=== PATIENT | female | born 1985 | race Caucasian/White ===

== ENCOUNTER 2018-04-13 08:31 | Emergency (ER) | payer OTHER ==
[2018-04-13] MEDS: TETRACAINE 0.5% 4 ML OPH BOTH EYES (08:57)
[2018-04-13] MEDS: FLUORESCEIN STRIP LEFT EYE (08:57)
== END 2018-04-13 10:02 | disposition home or self-care (01) ==
LOC: FTE 08:31
DX: H57.8 Other specified disorders of eye and adnexa (principal)
CPT/HCPCS: 99283; Z7502

== ENCOUNTER 2019-01-04 12:04 | Emergency (ER) | payer OTHER ==
[2019-01-04 14:27] LABS: ADD MAN DIFF? NO
[2019-01-04 14:30] LABS: WHITE BLOOD COUNT 12.5 10^3/ul (4.8-10.8)
[2019-01-04 14:30] LABS: ABNORMAL IP MESSAGE 1; BASOPHIL # 0.1 10^3/ul (0.0-0.1); EOSINOPHILS # 0.5 10^3/ul (0.0-0.5); EOSINOPHILS % 4.3 % (0.0-7.0); HEMATOCRIT 32.8 % (37.0-47.0); HEMOGLOBIN 9.4 g/dl (12.0-16.0); LYMPHOCYTES # 3.8 10^3/ul (0.8-2.9); LYMPHOCYTES % 30.7 % (15.0-51.0); MEAN CORPUSCULAR HEMOGLOBIN 19.5 pg (29.0-33.0); MEAN CORPUSCULAR HGB CONC 28.7 g/dl (32.0-37.0); MEAN CORPUSCULAR VOLUME 67.9 fl (82.0-101.0); MEAN PLATELET VOLUME 10.9 fl (7.4-10.4); MONOCYTE # 0.8 10^3/ul (0.3-0.9); MONOCYTES % 6.3 % (0.0-11.0); NEUTROPHIL # 7.2 10^3/ul (1.6-7.5); NEUTROPHILS % 57.3 % (39.0-77.0); PLATELET COUNT 343 10^3/UL (140-415); RED BLOOD COUNT 4.83 10^6/ul (4.20-5.40); RED CELL DISTRIBUTION WIDTH 18.6 % (11.5-14.5)
[2019-01-04 14:32] LABS: POSITIVE DIFF @See below
[2019-01-04] MEDS: SOD CHLORIDE 0.9% 1,000 ML IV (14:47)
[2019-01-04] MEDS: ONDANSETRON 4 MG INJ IV (14:47)
[2019-01-04] MEDS: KETOROLAC 15 MG INJ IV (14:47)
[2019-01-04 14:48] LABS: ADD UMIC NO; ALANINE AMINOTRANSFERASE 13 IU/L (13-69); ALBUMIN 4.6 g/dl (3.3-4.9); ALBUMIN/GLOBULIN RATIO 1.02; ALKALINE PHOSPHATASE 93 IU/L (42-121); ANION GAP 9 (5-13); ASPARTATE AMINO TRANSFERASE 22 IU/L (15-46); BILIRUBIN,INDIRECT 0.1 mg/dl (0-1.1); BILIRUBIN,TOTAL 0.1 mg/dl (0.2-1.3); BLOOD UREA NITROGEN 8 mg/dl (7-20); CALCIUM 9.6 mg/dl (8.4-10.2); CARBON DIOXIDE 28 mmol/L (21-31); CHLORIDE 102 mmol/L (97-110); CREATININE 0.53 mg/dl (0.44-1.00); Estimated GFR > 60 mL/min (>60); GLUCOSE 95 mg/dl (70-220); LIPASE 125 U/L (23-300); POTASSIUM 4.1 mmol/L (3.5-5.1); SODIUM 139 mmol/L (135-144); TOTAL PROTEIN 9.1 g/dl (6.1-8.1); UR ASCORBIC ACID NEGATIVE (NEGATIVE); UR BILIRUBIN (Dip) NEGATIVE (NEGATIVE); UR BLOOD (Dip) NEGATIVE (NEGATIVE); UR CLARITY CLEAR (CLEAR); UR COLOR STRAW (YELLOW); UR GLUCOSE (Dip) NEGATIVE (NEGATIVE); UR KETONES (Dip) NEGATIVE (NEGATIVE); UR LEUKOCYTE ESTERASE (Dip) NEGATIVE Leu/ul (NEGATIVE); UR NITRITE (Dip) NEGATIVE (NEGATIVE); UR SPECIFIC GRAVITY (Dip) 1.005 (1.003-1.030); UR TOTAL PROTEIN (Dip) NEGATIVE (NEGATIVE); UR UROBILINOGEN (Dip) NEGATIVE (NEGATIVE)
[2019-01-04 14:55] LABS: INR 0.94; PROTIME 12.7 Sec (11.9-14.9)
[2019-01-04 14:56] LABS: PARTIAL THROMBOPLASTIN TIME 29.2 Sec (23.0-35.0)
== END 2019-01-04 16:02 | disposition home or self-care (01) ==
LOC: FTE 12:04
DX: R10.13 Epigastric pain (principal); R11.0 Nausea
CPT/HCPCS: 36415; 74176; 80053; 81003; 81025; 83690; 85025; 85610; 85730; 96361; 96374; 96375; 99285-25